=== PATIENT | female | born 1950 | race African-American/Black ===

== ENCOUNTER 2019-03-22 10:19 | Emergency (ER) | payer MEDICARE, MEDICAID ==
[~2019-03-22] VITALS: Ht 157.5 cm; Wt 81.6 kg
[~2019-03-22 10:19] MED LIST: AMLODIPINE BES2.5 MG ORAL; AMOXICILLIN500 MG ORAL; AUGMENTIN 875-1 EAC1 ORAL; AURALGAN OTIC1 DROP LEFT EAR; BACLOFEN10 MG ORAL; CIPRODEX OTIC7.5 M1 LEFT EAR; CORTISPORIN EAR10 M1 LEFT EAR; IBUPROFEN600 MG ORAL; NORCO 5-325 TA1 EACH ORAL; PROZAC10 MG PO; TENORMIN25 MG ORAL; ZOFRAN8 MG ORAL
[2019-03-22] MEDS ORDERED: TRAZODONE HCL100 MG ORAL (10:28)
--- NOTE | 2019-03-22 10:35 | NUR ---
ED Nurse Note: Patient ambulated in to ER c/o both eyes' discomfort. Patient alert and oriented x 4 and ambulatory. skin clean and intact. calm and cooperative. no acute distress noted at this time. no redness noted and vision test at 20/50 on both eyes. no discharge noted at this time.
[2019-03-22 10:37] VITALS: BP 185/75
[2019-03-22] MEDS ORDERED: Tetracaine 0.5% Opth 4ml Soln LEFT EYE ONE (11:45)
[2019-03-22] MEDS ORDERED: Fluorescein Strips BOTH EYES ONE (11:45)
[2019-03-22] MEDS ORDERED: GARAMYCIN 0.3%1 DROP BOTH EYES (11:51)
[2019-03-22 12:00] VITALS: BP 177/71
[2019-03-22] MEDS ORDERED: Gentamicin 0.3% Opth Soln 5ml BOTH EYES ONE (12:00)
--- NOTE | 2019-03-22 12:00 | NUR ---
ER DISCHARGE NOTE: Patient is cleared to be discharged per ERMD, pt is aox4, on room air, with stable vital signs. pt was given dc and prescription instructions, pt was able to verbalize understanding, pt id band removed. pt is able to ambulate with steady gait. pt took all belongings.
--- NOTE | 2019-03-22 16:19 | Emergency Room Report ---
History of Present Illness General Chief Complaint: Eye Problems Source: Patient Present Illness HPI Patient is a 68-year-old female who presented after increased bilateral eye pain and discharge. Patient had gradual onset of symptoms. She reports having some increased eye drainage in the mornings with increased crusting. She denies any lid swelling. She denies any visual changes. She reports having prior history of chronic lung disease but denies any current symptoms. She reports having a recent sick contact at home. She denies any fever. She denies any vomiting or diarrhea. Allergies: Coded Allergies: No Known Allergies (Unverified , 12/28/12) Patient History Past Medical History: see triage record Last Menstrual Period: 20 YEARS AGO Now: No Reviewed Nursing Documentation: PMH: Agreed; PSxH: Agreed Nursing Documentation-PMH Past Medical History: No History, Except For Hx Hypertension: Yes History Of Psychiatric Problem: Yes - ANXIETY Hx Neurological Problems: Yes - NERVE PROBLEMS BILAT HANDS. Review of Systems All Other Systems: negative except mentioned in HPI Physical Exam Vital Signs Date Time Temp Pulse Resp B/P (MAP) Pulse Ox O2 Delivery O2 Flow Rate FiO2 03/22/19 10:21 98.1 62 16 181/75 (110) 96 Room Air Sp02 EP Interpretation: reviewed, normal General Appearance: normal inspection, no apparent distress, alert, GCS 15, Chronically Ill Head: atraumatic Eyes: bilateral eye PERRL, bilateral eye EOMI, bilateral eye other - conjunctival injection ENT: normal ENT inspection, hearing grossly normal, normal voice Neck: normal inspection, full range of motion, supple Respiratory: normal inspection, lungs clear, normal breath sounds, no respiratory distress, no retraction, no wheezing Cardiovascular #1: regular rate, rhythm Gastrointestinal: normal inspection, soft Musculoskeletal: normal inspection, back normal, normal range of motion Neurologic: normal inspection, alert, oriented x3, responsive, spool salvager III-XII nml as tested, motor strength/tone normal, speech normal Psychiatric: normal inspection, judgement/insight normal, mood/affect normal Medical Decision Making Diagnostic Impression: Primary Impression: Conjunctivitis ER Course Patient presented for increased bilateral eye discharge. Differential diagnosis include is not limited to Bacterial conjunctivitis, sinusitis, among others. Patient has a benign exam and does not appear to require any further imaging or laboratory testing at this time. Patient was noted to have what appears to be a bacterial conjunctivitis. Her fluorescein exam showed no evidence of dye uptake. Patient was advised to follow-up with ophthalmology for recheck. She is given prescription for gentamicin ophthalmic. patient is advised to return if worse. Last Vital Signs Date Time Temp Pulse Resp B/P (MAP) Pulse Ox O2 Delivery O2 Flow Rate FiO2 03/22/19 12:00 98.1 86 16 177/71 96 Room Air Status: improved Disposition: HOME, SELF-CARE Condition: Stable Scripts Gentamicin Sulfate (Gentamicin Sulfate) 5 Ml Drops 1 DROP BOTH EYES FOUR TIMES A DAY for 7 Days, ML Prov: Andrew Bush MD 03/22/19 Referrals: NON PHYSICIAN (PCP) Patient Instructions: Bacterial Conjunctivitis Additional Instructions: Follow up with opthalmology in 1-2 days. Return if worse. Andrew Bush MD Mar 22, 2019 16:19
== END 2019-03-22 12:01 | disposition home or self-care (01) ==
LOC: EMR 11:08
DX: H10.9 Unspecified conjunctivitis (principal); I10 Essential (primary) hypertension; F41.9 Anxiety disorder, unspecified
CPT/HCPCS: 99282